=== PATIENT | male | born 1945 | race Caucasian/White ===

== ENCOUNTER 2019-01-29 08:19 | Day surgery (SDC) | payer MEDICARE, OTHER ==
[2019-01-27 15:48] VITALS: BP_SYST 145; BP_SYST 170; BP_DIAS 80; BP_DIAS 82
[2019-01-27 15:52] LABS: BASOPHILS % (AUTO) 0.4 % (0.0-5.0); EOSINOPHILS % (AUTO) 0.9 % (0.0-8.0); HEMATOCRIT 42.7 % (42-54); LYMPHOCYTES % (AUTO) 6.8 % (21.0-51.0); MEAN CORPUSCULAR HEMOGLOBIN 31.5 pg (27.0-33.0); MEAN CORPUSCULAR VOLUME 92.7 fL (79-99); MONOCYTES % (AUTO) 10.9 % (3.0-13.0); PLATELET COUNT (AUTO) 360 K/uL (130-400); RED CELL DISTRIBUTION WIDTH 12.9 % (11.0-15.5); WHITE BLOOD COUNT (AUTO) 11.9 K/uL (4.8-10.8)
[2019-01-27 15:58] LABS: POTASSIUM 5.2 mmol/L (3.5-5.1)
--- NOTE | 2019-01-28 14:16 | NUR ---
ABNORMAL LAB: [facility] CARDENAS CRNA MADE AWARE OF K: 5.2 AND CREAT. OF 2.0, REVIEWED LAB AND OK TO PROCEED WITH SURGERY.
--- NOTE | 2019-01-28 14:35 | NUR ---
LABS RECEIVED CALL FROM [facility] PER DR. NICHOLAS SUMNER TO PROCEED WITH SX, NO FURTER ORDERS GIVEN
[~2019-01-29] VITALS: Ht 182.9 cm; Wt 78.0 kg
[2019-01-29] VITALS (17 sets, daily range): BP systolic 98–156; BP diastolic 52–92
[~2019-01-29 08:19] MED LIST: ACET-66 PO; ACET1TAB12 PO
[2019-01-29] MEDS: CEFTRIAXONE SODIUM 1 GM IVP SCH ×2 (09:30→12:40)
[2019-01-29] MEDS ORDERED: DOCU100C33 PO (09:46)
[2019-01-29] MEDS ORDERED: TAMS-1 PO (09:46)
[2019-01-29] MEDS ORDERED: LUBI8CAP PO (09:46)
[2019-01-29] MEDS ORDERED: LEVO500T89 PO (09:46)
[2019-01-29] MEDS ORDERED: LACTATED RINGERS 1000ML 1,000 ML IV ONE (09:47)
[2019-01-29] MEDS ORDERED: IOHEXOL-350 50ML VIAL IV ONE (10:50)
[2019-01-29] MEDS ORDERED: DEXAMETHASONE SOD PHOSPHATE 10MG/ML 1ML VIAL ONE (12:17)
[2019-01-29] MEDS ORDERED: MIDAZOLAM HCL 1 MG/ML 2ML VIAL ONE (12:17)
[2019-01-29] MEDS ORDERED: ONDANSETRON HCL 4 MG/2 ML VIAL ONE (12:17)
[2019-01-29] MEDS ORDERED: LIDOCAINE PF 2% 5ML ABBOJECT ONE (12:17)
[2019-01-29] MEDS ORDERED: PROPOFOL 10 MG/ML 20ML VIAL IV ONE (12:18)
[2019-01-29] MEDS ORDERED: FENTANYL CITRATE PF 50 MCG/1 ML 2ML VIAL ONE (12:18)
[2019-01-29] MEDS ORDERED: OPIUM/BELLADONNA ALKALOIDS 1 EACH SUPP.RECT RC ONE (13:07)
== END 2019-01-29 15:02 | disposition home or self-care (01) ==
LOC: DAH 08:19
PROVIDERS: ATTEND Urology
DX: N13.2 Hydronephrosis with renal and ureteral calculous obstruction (principal); Z98.890 Other specified postprocedural states; N32.89 Other specified disorders of bladder; M19.90 Unspecified osteoarthritis, unspecified site
CPT/HCPCS: 36415 ×2; 52332; 52352; 74420; 80048; 82360; 85025; A4215; A4221; A4222; A4223; A4344; A4358; A4510; A4600; A4663; A5113; A6260; C1758 ×2; C2617; J0696; J1100; J2001; J2250; J2405; J2704; J3010; J7120 ×2; Q9967